=== PATIENT | female | born 1950 | race Caucasian/White ===

== ENCOUNTER 2018-01-02 08:19 | Outpatient (CLI) | payer OTHER | END 2018-01-02 08:37 | disposition home or self-care (01) | LOC: NUCLEAR 08:19 | DX: E04.8 Other specified nontoxic goiter (principal); I87.2 Venous insufficiency (chronic) (peripheral) | CPT/HCPCS: 78012; 93970; A9531 ==

== ENCOUNTER 2018-01-02 12:20 | Outpatient (CLI) | payer OTHER | END 2018-01-02 12:28 | disposition home or self-care (01) | LOC: RAD 12:20 | DX: I15.8 Other secondary hypertension (principal); I10 Essential (primary) hypertension ==

== ENCOUNTER 2018-01-03 09:36 | Outpatient (CLI) | payer OTHER | END 2018-01-03 09:44 | disposition home or self-care (01) | LOC: NUCLEAR 09:36 | DX: E04.2 Nontoxic multinodular goiter (principal) | CPT/HCPCS: 78013; A9512 ==

== ENCOUNTER 2019-05-19 13:37 | Emergency (ER) | payer OTHER ==
[~2019-05-19] VITALS: Ht 167.6 cm; Wt 104.3 kg
[2019-05-19] MEDS ORDERED: COZAAR25 MG (14:12)
[2019-05-19] MEDS ORDERED: SKELAXIN800 MG PO (16:12)
[2019-05-19] MEDS ORDERED: VOLTAREN-XR100 MG PO (16:12)
== END 2019-05-19 17:55 ==
LOC: ER 13:37
DX: M62.838 Other muscle spasm (principal)